=== PATIENT | male | born 1975 | race Caucasian/White ===

== ENCOUNTER 2019-02-19 14:35 | Emergency (ER) | payer OTHER ==
[2019-02-19 14:48] VITALS: BP 146/69
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
[2019-02-19] MEDS ORDERED: Ibuprofen TAB* 600 MG PO ONE (15:27)
== END 2019-02-19 16:30 | disposition home or self-care (01) ==
LOC: UCCORT 14:35
DX: S20.219A Contusion of unspecified front wall of thorax, initial encounter (principal); S69.91XA Unspecified injury of right wrist, hand and finger(s), initial encounter; V18.0XXA Pedal cycle driver injured in noncollision transport accident in nontraffic accident, initial encounter; Y93.55 Activity, bike riding; Y92.828 Other wilderness area as the place of occurrence of the external cause; Z87.81 Personal history of (healed) traumatic fracture; I10 Essential (primary) hypertension; F17.220 Nicotine dependence, chewing tobacco, uncomplicated
CPT/HCPCS: 71046; 71120; 93005; 99203; A9270-GY; G0463